=== PATIENT | male | born 1990 | race Caucasian/White ===

== ENCOUNTER → 2017-11-21 | Emergency (ER) | payer OTHER ==
[~2017-11-21] VITALS: Ht 180.3 cm; Wt 86.2 kg
[~2017-11-21] MED LIST: FLUOXETINE HCL20 MG PO; VISTARIL25 MG PO; VISTARIL50 MG PO
== END ==
LOC: ED 21:10
DX: S39.012A Strain of muscle, fascia and tendon of lower back, initial encounter (principal); S00.83XA Contusion of other part of head, initial encounter; F17.200 Nicotine dependence, unspecified, uncomplicated; Z79.899 Other long term (current) drug therapy; V49.40XA Driver injured in collision with unspecified motor vehicles in traffic accident, initial encounter; W22.11XA Striking against or struck by driver side automobile airbag, initial encounter
CPT/HCPCS: 99282

== ENCOUNTER 2021-02-05 14:22 | Emergency (ER) | payer OTHER ==
[~2021-02-05] VITALS: Ht 180.3 cm; Wt 86.2 kg
[2021-02-05] MEDS ORDERED: ATORVASTATIN CA40 MG PO (14:34)
== END 2021-02-05 15:34 | disposition home or self-care (01) ==
LOC: ED 14:22
DX: T63.441A Toxic effect of venom of bees, accidental (unintentional), initial encounter (principal); F41.9 Anxiety disorder, unspecified; E78.00 Pure hypercholesterolemia, unspecified; F17.200 Nicotine dependence, unspecified, uncomplicated; Z79.899 Other long term (current) drug therapy
CPT/HCPCS: 99282

== ENCOUNTER 2024-02-09 07:09 | Emergency (ER) | payer OTHER ==
[~2024-02-09] VITALS: Ht 180.3 cm; Wt 106.7 kg
[~2024-02-09 07:09] MED LIST changes: +ATORVASTATIN CA40 MG PO
[2024-02-09] MEDS ORDERED: FLUOXETINE HCL40 MG PO (07:13)
[2024-02-09] MEDS ORDERED: ASPIRIN 81 MG CHEW PO ONE (07:15)
[2024-02-09 07:23] LABS: BASOPHILS 0.4 % (0-2); EOSINOPHILS 0.7 % (0-6); HEMATOCRIT 50.9 % (35.0-50.0); HEMOGLOBIN 17.6 g/dL (12.0-18.0); LYMPHOCYTES 31.8 % (24-44); MCH 29.3 (27-36); MCHC 34.5 g/dl (30-36); MONOCYTES 7.5 % (0-12); NEUTROPHILS 59.6 % (39-80); PLATELET COUNT 234 K/uL (140-440); RBC 5.99 M/ul (4.3-5.7); RDW 14.4 (10.5-15.0)
[2024-02-09 07:43] LABS: ALBUMIN 3.6 g/dL (3.4-5.0); ALBUMIN/GLOBULIN RATIO 0.88 (1.1-2.4); BILIRUBIN, TOTAL 0.4 ng/dL (0.2-1.0); BUN/CREATININE RATIO 12.6 (6.0-28.6); CALCIUM 8.7 mg/dL (8.5-10.1); CREATININE, SERUM 1.19 mg/dL (0.70-1.30); MAGNESIUM 1.7 mg/dL (1.8-2.4); PROTEIN, TOTAL 7.7 g/dL (6.4-8.2)
[2024-02-09] MEDS ORDERED: LIDOCAINE & ANTACID 35 ML BTL PO ONE (08:30)
[2024-02-09] MEDS ORDERED: PANTOPRAZOLE SODIUM 40 MG TABEC PO ONE (09:00)
[2024-02-09 09:01] VITALS: BP 119/91
--- NOTE | 2024-02-09 15:10 | EKG ---
[facility] [address] [facility] [place], [place] [address] Signed Normal sinus rhythm Normal ECG No previous ECGs available Confirmed by Mikayla Laurent ([id number]) on 02/09/2024 3:10:09 PM Electronically Signed By: MIKAYLA LAURETN MD 02/09/24 1510 PATIENT NAME: BUDDY SOLORZANO Electrocardiogram DATE OF : 88 PHYSICIAN: MIKAYLA LAURENT MD REPORT #: [id number] REPORT IS CONFIDENTIAL AND NOT TO BE RELEASED WITHOUT AUTHORIZATION
== END 2024-02-09 09:01 | disposition home or self-care (01) ==
LOC: ED 07:09
PROVIDERS: Emergency Medicine
DX: K21.9 Gastro-esophageal reflux disease without esophagitis (principal); F17.200 Nicotine dependence, unspecified, uncomplicated; Z79.899 Other long term (current) drug therapy
CPT/HCPCS: 36415; 71045; 80053; 83735; 84484; 85025; 93005; 93010; A9270